=== PATIENT | female | born 1990 | race Caucasian/White ===

== ENCOUNTER 2025-03-06 11:29 | Outpatient (AMB) | payer OTHER, SELFPAY ==
--- NOTE | 2025-03-06 11:31 | A.OFFPC_ITS ---
Vital Signs 03/06/25 11:37 Height 5 ft Weight 106 lb 8 oz BMI 20.8 BP 122/70 Blood Pressure Location Lt brachial Position Sitting Respiration 12 Pulse 72 Pulse Source Pulse Oximeter Temp 97.4 F Temp Source Oral Pulse Oximetry (%) 99 Oxygen Delivery Method Room Air Intake Visit Reasons: est care requesting pe Intake Note: New patient to establish care [employer] Required: No Allergies acetaminophen [From NyQuil] Adverse Reaction (Severe, Verified 03/06/25 11:46) Fainting dextromethorphan [From NyQuil] Adverse Reaction (Severe, Verified 03/06/25 11:46) Fainting doxylamine [From NyQuil] Adverse Reaction (Severe, Verified 03/06/25 11:46) Fainting pseudoephedrine [From NyQuil] Adverse Reaction (Severe, Verified 03/06/25 11:46) Fainting Medication List - Last Reconciled 03/06/25 by VANNESSA Colbert No Known Home Meds Tobacco use date assessed: 03/06/25 Dental Screening Dental Screen Date: 03/06/25 Did you have a dental visit in the last 12 months?: Yes Did you have a dental problem in the last 6 months where you did not have access to dental care?: No Was dental information given to patient?: Patient has dentist HPI HPI Comments History of Present Illness Details 34 y/o F with vit d def, hx of varicella pneumonitis (1996), family hx of breast ca s/p wisdom teeth extraction 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 - Anxiety was discussed during the visit , however, the patient does not currently recognize significant stress or incidents causing anxiety. Holds ten belinda in joints and can have pain. No need to see Rheum. - Family history of breast cancer is pre sent on the maternal side, with the maternal grandmother and aunt being affected. A normal mammogram was recorded in 2022, but the patient did not express current concerns or the need for additional screenings outside normal guidelines. 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 - Routine gynecological check-ups are ma intained - Does not adhere to a specific diet pat tern like vegetarian or vegan but records were not detailed - Considers lifestyle to be normal witho ut significant dietary restrictions noted Health Maintenance - Routine mammogram completed in 2022, r esults normal - Patient is due for a tetanus shot whic h was offered for administration during the visit - Discussion on cholesterol screening; p rior screening without abnormalities - Routine Pap visit noted as last occurr ing on 07/2019 - Recommended routine physical exam aparna karis; currently up-to-date with exams Review of Systems - Neurological: Reports headaches - Psychiatric: Denies current anxiety, s tress only reported in past circumstances - Musculoskeletal: Reports knee and ankl e discomfort due to pulling when stressed - Vision: Wears glasses and had visited an eye doctor in the past year - General: Reports managing additional s tress with ongoing multiple roles Physical Exam General: Well developed, well nourished, in no acute distress. Appears stated age. Head: Normocephalic, atraumatic. Eyes: Pupils are equal, round and reactive to light and accommodation. Conjunctivae are clear. Vision grossly normal. Patient wears glasses. Ears: TMs clear AU, EACS WNL Nose: Patent, without discharge. Neck: Supple, no adenopathy or thyromegaly. No pain or tenderness noted. Breast: Edu on SBE. Patient is aware of her own breasts and performs self-exams. Lungs: Clear to auscultation bilaterally. No rales, rhonchi or wheeze noted. Good air flow in all harrell. Heart: Regular rate and rhythm. No murmurs, click, rubs or gallops are noted. Abdomen: Bowel sounds present in all quadrants. The abdomen is soft, nontender, with no masses or organomegaly noted. No hernias are noted. : Deferred. 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 Last Pap visit was in July 2019. Pulses: Peripheral pulses are equal and palpable bilaterally. Extremities: No clubbing, cyanosis nor edema is noted. Neurologic: Gait and station normal. Cranial Nerves 2-12 intact. Motor strength grossly symmetrical and intact. No sensory loss. Balance normal. Skin: No rashes, ulcers, or lesions noted. Turgor is good. Skin color is good. Hair and nails are without abnormalities. Psych: Normal eye contact, affect and mood appropriate, and normal interactions. Patient is alert and appropriate to context. Discussion Notes I reviewed with the patient her overall health status, emphasizing the importance of regular health maintenance and screenings. We discussed her current management and observations regarding headaches and any related anxiety. The potential need for cholesterol screening was also deliberated and explained based on her low cardiovascular risk history. Information about tetanus was given, and I proposed administration today. We also went over the process of accessing medical records through the patient portal, emphasizing its use for future health communications and inquiries. Patient Instructions. - Follow-up promptly if anxiety or stres s levels increase. - Adhere to routine breast cancer screen ing schedules; be mindful of family history. - Return for tetanus immunization today, as it's due now to maintain immunity. - Use the patient portal for communicati ons and accessing lab results. - RTO 1 year CPE sooner PRN Consent Patient was informed and verbally consented to the use of an ambient scribe for clinic note documentation during this visit. Additional 20 minutes spent on visit reviewing records, est care. FORMERLY [facility], [facility] Medical History (Updated 03/07/25 @ 19:55 by La Jackson, [facility]) Plantar warts Surgical History (Updated 03/06/25 @ 12:07 by Srinivasan Foss MA) [place] teeth removed (~2006) Family History (Updated 03/06/25 @ 12:09 by Srinivasan Foss MA) Father HTN (hypertension) Skin cancer Acute Crohn's disease Mother Skin cancer Sarcoidosis of lung Social History (Updated 03/06/25 @ 12:06 by Srinivasan Foss MA) Household Members: Spouse and Children Housing: House Are you a primary customer care voice consultant to a significant other at home: Yes Do you presently have visiting nurse or other home services: No Alcohol intake: current Alcohol intake frequency: a few times a month Patient Tobacco Use Status: Never used Tobacco e-Cigarette/Vaping Use: Never Used Second Hand Smoke Exposure: No service: No Current occupational status: employed 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 1. Little interest or pleasure in doing things: not at all 2. Feeling down, depressed, or hopeless: not at all 3. Trouble falling or staying asleep, or sleeping too much: not at all 4. Feeling tired or having little energy: not at all 5. Poor appetite or overeating: not at all 6. Feeling bad about yourself - or that you are a failure or have let yourself or your family down: not at all 7. Trouble concentrating on things, such as reading the newspaper or watching television: not at all 8. Moving or speaking so slowly that other people could have noticed. Or the opposite - being so fidgety or restless that you have been moving around a lot more than usual: not at all 9. Thoughts that you would be better off or of hurting yourself in some way: not at all Total score: 0 Depression Screening Interpretation: Negative Depression Screening Done: Yes 10345 - PHQ-9 Billing: Yes Source: Developed by Drs. Wes Rivera, Neelima Katz, Sabino Epps and colleagues, with an educational jair from [employer]. Thrive Questionnaire Date Thrive assessed: 03/06/25 I am a: Patient What is your living situation today?: I have a steady place to live Within the past 12 months, did the food you bought not last and you didn't have the money to get more?: Never true Within the past 12 months, did you worry whether your food would run out before you got money to buy more?: Never true Do you have trouble paying for medicines?: No Do you have trouble getting transportation to medical appointments?: No Do you have trouble paying your heating and electricity bill?: No Do you have trouble taking care of your child, family member or friend?: No Do you have trouble with day-to-day activities such as bathing, preparing meals, shopping, managing finances, etc.?: No Are you currently unemployed and looking for a job?: No Are you interested in more education?: No Please select the resources that you would like help with: None Currently or been in a relationship where the following occur: No concerns reported THRIVE Score: 0 AUDIT C Alcohol Use Questionnaire (AUDIT-C) 1. How often do you have a drink containing alcohol?: 2-3 times a week 2. How many drinks containing alcohol do you have on a typical day when you are drinking?: 1 or 2 3. How often do you have six or more drinks on one occasion?: Never Total Score: 3 Score Reviewed/Action Taken: Yes KARRI-7 AMB Questionnaire KARRI-7 Date KARRI - 7 assessed: 03/06/25 Feeling nervous, anxious, or on edge: 0 = Not at all Not being able to stop or control worryin = Not at all Worrying too much about different things: 0 = Not at all Trouble relaxin = Not at all Being so restless that it is hard to sit still: 0 = Not at all Becoming easily annoyed or irritable: 0 = Not at all Feeling afraid as if something awful might happen: 0 = Not at all Total KARRI-7 score (0-4 normal; 5-9 mild; 10-14 moderate; 15-21 severe): 0 Source: Developed by Drs. Wes Rivera, Neelima Katz, Sabino Epps and colleagues, with an educational jair from [employer]. KARRI-7 Assessment Billing KARRI-7 Assessment Tool: KARRI-7 Assessment 72072 Physical exam (Primary Care) Vital Signs: Last Vital Signs Temp 97.4 F 03/06/25 11:37 Pulse 72 03/06/25 11:37 Resp 12 03/06/25 11:37 BP 122/70 03/06/25 11:37 Pulse Ox 99 03/06/25 11:37 Oxygen Delivery Method Room Air 03/06/25 11:37 BMI result Body Mass Index 20.8 Tobacco/Smoking Status: Tobacco use Status Tobacco use date assessed 03/06/25 03/06/25 11:38 Patient Tobacco Use Status Never used Tobacco 03/06/25 12:06 e-Cigarette/Vaping Use Never Used 03/06/25 12:06 PHQ-9: PHQ-9 Score PHQ-9: Total score 0 03/07/25 08:39 Depression Screening Interpretation: Negative Thrive Assessment: Date of Thrive Assessment Date Thrive assessed 03/06/25 03/06/25 11:34 Currently or been in a relationship where the following occur: No concerns reported Immunizations Boostrix Tdap 2.5 Lf unit-8 mcg-5 Lf/0.5 mL intramuscular syringe Performing Provider: EVONNE Colbert [place] [facility] [place] [facility] Administered by: Elizabeth Dawkins RN on 03/06/25 12:13 Dose Route Admin Location Dispensed Lot Number Expiration Date NDC Die Sinker 0.5 mL IM Left Deltoid 0.5 mL [id number] 11/09/26 [id number] [employer] VIS Given Date VIS Provided VIS Publication Date 03/06/25 Single Vaccine 21 Eligibility Eligibility Date Funding Source Not [facility] Eligible 03/06/25 Private Coding Level of Care Code New Pt Level 3 (60456) New Pt Prev Care 18-39yr(67783 Diagnoses Encounter for general adult medical examination with abnormal findings Z00.01 Laboratory exam ordered as part of routine general medical examination Z00.00 Family history of breast cancer Z80.3 Vitamin D deficiency E55.9 History of mammogram Z92.89 History of Papanicolaou smear of cervix Z92.89 Encounter to establish care with new provider Z76.89 Need for Tdap vaccination Z23 Family history of Crohn's disease Z83.79 Additional Codes KARRI-7 Assessment Billing - KARRI-7 Assessment Tool: KARRI-7 Assessment 51967 ([id number]) PHQ-9 - 94875 - PHQ-9 Billing: Yes ([id number]) Assessment & Plan Assessment & Plan (1) Encounter for general adult medical examination with abnormal findings: Onset Date: ~02/2025 Code(s): Z00.01 - Encounter for general adult medical examination with abnormal findings Category: Medical (2) Laboratory exam ordered as part of routine general medical examination: Code(s): Z00.00 - Encounter for general adult medical examination without abnormal findings Category: Medical (3) Family history of breast cancer: Comment: MGM and Maternal aunt Code(s): Z80.3 - Family history of malignant neoplasm of breast Category: Medical (4) Vitamin D deficiency: Code(s): E55.9 - Vitamin D deficiency, unspecified Category: Medical (5) History of mammogram: Onset Date: ~2022 Comment: negative Code(s): Z92.89 - Personal history of other medical treatment Category: Medical (6) History of Papanicolaou smear of cervix: Onset Date: ~2018 Comment: wnl Code(s): Z92.89 - Personal history of other medical treatment Category: Medical (7) Encounter to establish care with new provider: Code(s): Z76.89 - Persons encountering health services in other specified circumstances (8) Need for Tdap vaccination: Code(s): Z23 - Encounter for immunization Category: Medical (9) Family history of Crohn's disease: Comment: Dad Code(s): Z83.79 - Family history of other diseases of the digestive system Category: Medical Plan . Orders: Orders Comprehensive Met. Panel 03/06/25 Z00. - Encounter for general adult medical examination without abnormal findings Microalbumin, Random (w Creat) 03/06/25 Z. - Encounter for general adult medical examination without abnormal findings TSH reflex Free T4 03/06/25 Z00.00 - Encounter for general adult medical exam ination without abnormal findings Vitamin B12 and Folate 03/06/25 Z00. - Encounter for general adult medical examination without abnormal findings Complete Blood Count no Diff 03/06/25 Z00. - Encounter for general adult medical examination without abnormal findings Hemoglobin A1c 03/06/25 Z00.00 - Encounter for general adult medical examination without abnormal findings Lipid Panel 03/06/25 Z00.00 - Encounter for general adult medical examination without abnormal findings Vitamin D 25-OH Total 03/06/25 Z00.00 - Encounter for general adult medical examination without abnormal findings TDaP Immunization 03/06/25 Z23 - Encounter for immunization Patient Instructions: Walk-In Care (Urgent Care): We Make it Easy Walk-in for urgent medical issues such as: ? Seasonal Allergies ? Insect Bites ? Cough ? Diarrhea ? Acute Asthma Attacks ? Back, Knee or Joint Pain ? Ear Infection ? Fever without a Rash ? Headaches ? Nausea ? [place] Eye, Rash or Skin Irritation ? Sore Throat ? Sports Physicals ? Vomiting Most insurances are accepted. Patients do not need to be part of the [facility] to seek care at the walk-in clinic. Locations [facility] [place] [address] [address] ? [phone] [facility] [place] Walk-In Care in [place] provides services to ages 18 and over. Open Tuesday-Tuesday: 8 a.m. to 5 p.m. and Tuesday: 9 a.m. to 3 p.m.* *Hours may vary due to staffing availability. To confirm Walk-In Care hours in [place], please call [phone]. [address] [place] [address] ? [phone] [facility] Walk-In Care in [place] provides services to ages 12 and over. Open Tuesday-Tuesday: 8 a.m. to 5 p.m. Hours may vary due to staffing availability. To confirm Walk-In Care hours in [place], please call [phone]. LABORATORY SERVICES: [facility] [place] [place] Primary Location [address] [place] [address] Tuesday through Tuesday 6:00 AM ? 5:00 PM Tuesday 7:00 AM ? 11:00 AM* [phone] The [facility] [place] is centrally located near the front entrance of the [facility] for easy outpatient access. Convenient parking is provided for outpatients. *Hours may vary due to staffing availability. To confirm Laboratory hours for any location, please call [phone]. Offsite Location For your convenience, we offer offsite laboratory draw stations at the following locations: [address] [place] [address] ? [address], [address] Tuesday through Tuesday 7:30 AM ? 1:00 PM* [phone] *Hours may vary due to staffing availability. To confirm Laboratory hours for any location, please call [phone]. [place] ? [address] Tuesday through Tuesday 6:00 AM ? 3:30 PM* Tuesday 6:30 AM ? 3 PM* [phone] *Hours may vary due to staffing availability. To confirm Laboratory hours for any location, please call [phone] [place] [address] Tuesday through Tuesday 7:30 AM ? 4:00 PM* [phone] *Hours may vary due to staffing availability. To confirm Laboratory hours for any location, please call [phone] [place] [address] Tuesday through 9:00 AM ? 4:00 PM* *Hours may vary due to staffing availability. To confirm Laboratory hours for any location, please call [phone]. Appointments are not necessary. Walk-ins are welcome. Like all the departments throughout the [facility], our Lab undergoes frequent reviews to ensure the quality and accuracy of test results, and our staff takes special pride in its status as a nationally accredited facility. Patient Portal: ONE PATIENT. ONE RECORD. BETTER CARE. [facility] has a fully integrated, cutting- edge mobile electronic health information system that has revolutionized the way we care for our patients and manage our organization. This system improves communication and coordination enabling us to provide safe, higher-quality care, and an overall positive experience for staff and patients. Our first priority, as always, is to deliver the highest quality care possible. The system is running in the background supporting that priority. This portal is for all [facility] and [facility] services and practices. If you are experiencing any technical difficulties with enrolling or logging into the Patient Portal please complete the [facility] [place] Technical Support Form. [facility] now offers a new secure on-line interactive tool for patients to review their health information ? ?Patient Portal. This interactive web portal will enable patients and their families to take an active role in their care by providing easy, secure access to their health information via the internet. The Patient Portal provides patients with instant access to their health information, including laboratory results, medications, allergies, demographic information, visit history, and more. In addition to managing their own care, parents and health care proxies with authorized consent will appreciate the ability to access the records of those individuals for whom they provide care. Please note: if you wish to gain access (Proxy) to another patient?s portal, you will be required to come to the Medical Records Department in person at [facility]. Both the patient giving proxy access and the proxy will need to provide photo identification and complete the appropriate authorization. The Patient Portal also allows track their appointments online. The [facility] Patient Portal also saves patients time by allowing them to submit updates to their demographic and contact information prior to their visits. Por randy email notifications will also alert patients to any new activity on their portal, such as test results and new appointments. In order to initially enroll in the [facility] Patient Portal, you will need to enter some required information including the following: * your [facility] Medical Record number * your personal home email address * name * date of Please note: In order to enroll in the [facility] Patient Portal, we need to have your email address on file in your electronic medical record. ?The email address needs to be specific for one person (yourself) in order for your Portal enrollment to be successful. ?You can update your email address in person with our Registration staff when you are registering for a hospital visit. ?Otherwise, you will need to come to the Health Information Management (Medical Records) Department at [facility]. ?We are open from Tuesday ? Tuesday from 7:30 a.m. ? 4:30 p.m. ?You will be required to present a photo id. Once you have successfully enrolled in the Patient Portal, you will receive a one-time user id and password for the Portal, sent to your email address. ?This will allow you to log into the Patient Portal within 99 hrs and reset your own logon id and password, and define personal security questions. ?Once your permanent login and password have been set, you can log into the [facility] Patient Portal at any time via the blue button above or from the Portal Logon button on any page of the [facility] website. [facility] and [facility] encourage all of our patients to enroll in Patient Portal as it presents a valuable opportunity for patients and their families to actively participate in their care and stay healthy Welcome to [facility]. ?We look forward to working with you. Health screenings for women You should visit your health care provider from time to time, even if you are healthy. The purpose of these visits is to: Screen for medical issues Assess your risk for future medical problems Encourage a healthy lifestyle Update vaccinations and other preventive care services Help you get to know your provider in case of an illness Information Even if you feel fine, you should still see your provider for regular checkups. These visits can help you avoid problems in the future. For example, the only way to find out if you have high blood pressure is to have it checked regularly. High blood sugar and high cholesterol levels also may not have any symptoms in the early stages. A simple blood test can check for these conditions. There are specific times when you should see your provider or receive specific health screenings. The [place] Preventive Services Task Force publishes a list of recommended screenings. Below are screening guidelines for women ages 18 to 39. BLOOD PRESSURE SCREENING Your blood pressure should be checked at least once every 3 to 5 years if: Your blood pressure is in the normal range (top number less than 120 mm Hg and bottom number less than 80 mm Hg) You don't have risk factors for high blood pressure Ask your provider if you need your blood pressure checked more often if: The top number is 120 to 129 mm Hg or the bottom number is 70 to 79 mm Hg You have diabetes, heart disease, kidney problems, are overweight, or have certain other health conditions You have a first-degree relative with high blood pressure You are Black You had high blood pressure during a If the top number is 130 mm Hg or greater or the bottom number is 80 mm Hg or greater, this is considered stage 1 hypertension. Schedule an appointment with y our provider to learn how you can reduce your blood pressure. Watch for blood pressure screenings in your area. Ask your provider if you can stop in to have your blood pressure checked. BREAST CANCER SCREENING Experts do not agree about the benefits of breast self-exams in finding breast cancer or saving lives. Talk to your provider about what is best for you. A screening mammogram is not recommended for most women under age 40. Your provider may discuss and recommend mammograms, MRI scans, or ultrasounds if you have an increased risk for breast cancer, such as: A mother or sister who had breast cancer at a young age (most often starting screening earlier than the age the close relative was diagnosed) You carry a high-risk genetic marker CERVICAL CANCER SCREENING Cervical cancer screening should start at age 21 years unless your provider advises otherwise. After the first test: Women ages 21 through 29 should have a Pap test every 3 years. Exoprts do not agree on whether HPV testing is recommended for this age group. Women ages 30 through 65 should be screened with either a Pap test every 3 years or the HPV test every 5 years or both tests every 5 years (called cotesting ). Women who have been treated for precancer (cervical dysplasia) should continue to have Pap tests for 20 years after treatment or until age 65, whichever is longer. If you have had your uterus and cervix removed (total hysterectomy), and you have not been diagnosed with cervical cancer or precancer (high grade cervical neoplasia), you do not need cervical cancer screening. CHOLESTEROL SCREENING Cholesterol screening should begin at: Age 45 for women with no known risk factors for coronary heart disease Age 20 for women with known risk factors for coronary heart disease Repeat cholesterol screening should take place: Every 5 years for women with normal cholesterol levels More often if changes occur in lifestyle (including weight gain and diet) More often if you have diabetes, heart disease, kidney problems, or certain other conditions DIABETES SCREENING You should be screened for diabetes starting at age 35 and then repeated every 3 years if you have no risk factors for diabetes. Screening may need to start earlier and be repeated more often if you have other risk factors for diabetes, such as: You have a first degree relative with diabetes. You are overweight or have obesity. You have high blood pressure, prediabetes, or a history of heart disease. Screening for diabetes should be done if you are planning to become and you are overweight and have other risk factors such as high blood pressure. DENTAL EXAM Go to the dentist once or twice every year for an exam and cleaning. Your dentist will evaluate if you need more frequent visits. EYE EXAM Have an eye exam every 5 to 10 years before age 40. If you have vision problems, have an eye exam every 2 years or more often if recommended by your provider. You should have an eye exam that includes an examination of your retina (back of your eye) at least every year if you have diabetes. IMMUNIZATIONS Commonly needed vaccines include: Flu shot: get one every year. COVID-19 vaccine: ask your provider what is best for you. Tetanus-diphtheria and acellular pertussis (Tdap) vaccine: have one at or after age 19 as one of your tetanus-diphtheria vaccines if you did not receive it as an adolescent. Tetanus-diphtheria: have a booster (or Tdap) every 10 years. Varicella vaccine: receive 2 doses if you never had chickenpox or the varicella vaccine. Hepatitis B vaccine: receive 2, 3, or 4 doses, depending on your exact circumstances. Measles, mumps, and rubella (MMR) vaccine: receive 1 to 2 doses if you are not already immune to MMR. Your provider can tell you if you are immune. Ask your provider about the human papillomavirus (HPV) vaccine if: You have not received the HPV vaccine in the past You have not completed the full vaccine series (you should catch up on this shot) Ask your provider if you should receive other immunizations if you have certain health problems that increase your risk for some diseases such as pneumonia. INFECTIOUS DISEASE SCREENING Women who are sexually active should be screened for chlamydia and gonorrhea up until age 25. Women 25 years and older should be screened for chlamydia and gonorrhea if at high risk. Screening for hepatitis C: All adults ages 18 to 79 should get a one-time test for hepatitis C. people should be screened at every . Screening for human immunodeficiency virus (HIV): All people ages 15 to 65 should get a one-time test for HIV. Depending on your lifestyle and medical history, you may also need to be screened for infections such as syphilis and HIV, as well as other infections. PHYSICAL EXAM All adults should visit their provider from time to time, even if they are healthy. The purpose of these visits is to: Screen for disease Assess your risk of future medical problems Encourage a healthy lifestyle Update your vaccinations and other preventive care services Maintain a relationship with a provider in case of an illness Your height, weight, and BMI should be checked at every exam. During your exam, your provider may ask you about: Depression and anxiety Diet and exercise Alcohol and tobacco use Safety issues, such as using seat belts, smoke detectors, and intimate partner violence Your medicines and risk for interactions SKIN SELF-EXAM Your provider may check your skin for signs of skin cancer, especially if you're at high risk, such as if you: Have had skin cancer before Have close relatives with skin cancer Have a weakened immune system OTHER SCREENING Talk with your provider about colon cancer screening if you have a strong family history of colon cancer or polyps, or if you have had inflammatory bowel disease or polyps yourself. Routine bone density screening of women under 40 is not recommended.
[2025-03-06 11:37] VITALS: BP 122/70; PULSE 72; RESP 12; TEMP 36.3; O2SAT 99; BMI 20.8
== END 2025-03-06 12:12 | disposition home or self-care (01) ==
LOC: HO.HMCFM 11:30
PROVIDERS: PCP Nurse Practitioner Family; Visit Provider Nurse Practitioner Family
DX: Z23 Encounter for immunization (principal)

== ENCOUNTER → 2025-03-06 11:29 | Outpatient (BNVA) | payer OTHER, SELFPAY | PROVIDERS: PCP Nurse Practitioner Family; Visit Provider Nurse Practitioner Family | DX: Z00.01 Encounter for general adult medical examination with abnormal findings (principal); Z76.89 Persons encountering health services in other specified circumstances; Z23 Encounter for immunization; E55.9 Vitamin D deficiency, unspecified; Z92.89 Personal history of other medical treatment; Z80.3 Family history of malignant neoplasm of breast; Z83.79 Family history of other diseases of the digestive system | CPT/HCPCS: 90471; 90715; 96127 ==

== ENCOUNTER 2025-03-06 12:33 | Outpatient (REF) | payer OTHER, SELFPAY ==
[2025-03-06 14:24] LABS: Hematocrit 38.9 % (37.0-47.0); Hemoglobin 13.6 g/dl (12.0-16.0); Mean Corpuscular Hemoglobin 30.7 pg (27.0-33.0); Mean Corpuscular Volume 87.8 fL (80.0-98.0); Mean Platelet Volume 10.6 fL (9.4-12.3); Platelet Count 248 X10*3/uL (160-400); Red Blood Count 4.43 X10*6/uL (4.20-5.50); Red Cell Distribution Width 11.7 % (11.0-16.0); White Blood Count 6.3 X10*3/uL (4.8-10.8)
[2025-03-06 14:33] LABS: Estimated Average Glucose 94 mg/dL; Hemoglobin A1C 106.5217 umol/L; Hemoglobin A1c % 4.9 % (<6.0); Total Hemoglobin (HGBA1C) 3598.8685 umol/L
[2025-03-06 14:46] LABS: Alanine Aminotransferase 36 U/L (0-31); Albumin Level 4.8 g/dL (3.5-5.0); Alkaline Phosphatase 57 U/L (39-117); Anion Gap 12 (12-20); Aspartate Amino Transferase 28 U/L (5-31); Bilirubin Total 0.4 mg/dL (0.0-1.0); Blood Urea Nitrogen 10 mg/dL (9-16); Calcium 9.6 mg/dL (8.4-10.2); Carbon Dioxide 27 mmol/L (22-29); Chloride 105 mmol/L (96-108); Cholesterol 176 mg/dL (<200); Estimated Glomerular Filt Rate > 60; Glucose Random 84 mg/dL (60-115); HDL Cholesterol 80 mg/dL (>40); LDL Cholesterol Calculated 87 mg/dL (<100); Potassium 3.5 mmol/L (3.3-5.1); Sodium 140 mmol/L (135-145); Total Protein 7.1 g/dL (6.5-8.0); Triglycerides 46 mg/dL (<150)
[2025-03-06 14:53] LABS: TSH reflex Free T4 1.22 uIU/mL (0.32-4.0); Vitamin D 25-OH Total 110.7 ng/mL (>30)
[2025-03-06 15:00] LABS: Creatinine Urine 23.06 mg/dL; Microalbumin Urine < 5.0 mg/L
[2025-03-06 15:09] LABS: Folate 14.5 ng/mL (> or = 4.0); Vitamin B12 607 pg/mL (200-900)
== END 2025-03-06 12:34 | disposition home or self-care (01) ==
LOC: HO.WFDLDS 12:33
PROVIDERS: Visit Provider Nurse Practitioner Family
DX: Z00.00 Encounter for general adult medical examination without abnormal findings (principal); Z13.1 Encounter for screening for diabetes mellitus; Z13.6 Encounter for screening for cardiovascular disorders
CPT/HCPCS: 36415; 80053; 80061; 82306; 82570; 82607; 82746; 83036; 84443; 85027